=== PATIENT | female | born 1980 | race Caucasian/White ===

== ENCOUNTER → 2017-03-14 | Day surgery (SDC) | payer OTHER ==
[2017-03-05 10:32] VITALS: Ht 162.6 cm; Wt 75.9 kg
[~2017-03-14] VITALS: Ht 162.6 cm; Wt 75.9 kg
[~2017-03-14] MED LIST: FEXO5TAB2; LIDOCAINE HCL 2% 2 ML VIAL (20MG/ML) ONE; MESA10002 PR; PROPOFOL IV EMULSION 10 MG/ML 20 ML VIAL IV ONE; SODIUM CHLORIDE 0.9% 500ML 500 ML IV ONE; TRIA1SPR4 PO
--- NOTE | 2017-03-14 08:46 | Endo History and Physical ---
History & Physical Date of Service: March 14, 2017. Chief Complaint: Ulcerative colitis Referring Physician: MILO Hutchison History of Present Illness 36 yo CF who presents for colonoscopy secondary to ulcerative colitis. Past Medical History Gastrointestinal Disorder, Other Past Surgical History Hx Cardiac Surgery: No Hx Internal Defibrillator: No Hx Pacemaker: No Hx Abdominal Surgery: Yes () Hx of Implantable Prosthesis: No Hx Post-Op Nausea and Vomiting: No Hx Cancer Surgery: No Hx Thoracic Surgery: No Hx Orthopedic: No Hx Urinary Tract Surgery: No Family History IBD Social History Smoking Status: Never Smoker Hx Substance Use: No Hx Alcohol Use: Yes (OCCASIONALLY) Allergies Coded Allergies: No Known Allergies (Verified , 03/14/17) Current Medications Reported Home Medications Medications Dose Route/Sig Max Daily Dose Days Date Category Nasacort Allergy 24Hr (Triamcinolone Acetonide (Nasal) 55 Mcg/Act Spr 1 [place] PO HS 03/05/17 Reported Canasa (Mesalamine) 1,000 Mg Sup 1 Supp UT HS 02/24/15 Reported Mary-D 12 Hour Allergy (Fexofenadine-Pseudoephedrine) 1 Tab Tab PRN 02/24/15 Reported Vital Signs Weight (Kilograms): 75.91 Height (Feet): 5 Height (Inches): 4 Date Time Temp Pulse Resp B/P Pulse Ox O2 Delivery O2 Flow Rate FiO2 03/14/17 08:16 36.6 81 18 136/89 99 Room Air Physical Exam General Appearance: WD/WN, no apparent distress Respiratory/Chest: Auscultation: breath sounds normal Cardiovascular: Heart Auscultation: RRR Abdomen: Bowel Sounds: normal Inspection & Palpation: soft, non-distended, no tenderness, guarding & rebound Assessment and Plan Assessment: 36 yo CF who presents for colonoscopy secondary to ulcerative colitis. Plan: Proceed with colonoscopy.
--- NOTE | 2017-03-14 09:42 | Discharge Instructions ---
Endoscopy Patient Instructions Date / Procedure(s) Performed March 14, 2017. Colonoscopy Allergy Information Coded Allergies: No Known Allergies (Verified , 03/14/17) Discharge Date / Findings March 14, 2017. Random colon biopsies Rectal biopsies Medication Instructions OK to resume all medications today as prescribed Reported Home Medications Medications Dose Route/Sig Max Daily Dose Days Date Category Nasacort Allergy 24Hr (Triamcinolone Acetonide (Nasal) 55 Mcg/Act Spr 1 [place] PO HS 03/05/17 Reported Canasa (Mesalamine) 1,000 Mg Sup 1 Supp GA HS 02/24/15 Reported Mary-D 12 Hour Allergy (Fexofenadine-Pseudoephedrine) 1 Tab Tab PRN 02/24/15 Reported Provider Instructions Activity Restrictions - No exercising or heavy lifting for 24 hours. - Do not drink alcohol the day of the procedure. - Do not drive a car or operate machinery until the day after the procedure. - Do not make any important decisions or sign important papers in 24 hours after the procedure. Following Day: - Return to full activity which may include returning to work/school. Diet Start your diet with liquids and light foods (jello, soup, juice, toast). Then eat your usual diet if not nauseated. Treatment For Common After Affects For mild abdominal pain, bloating, or excessive gas: - Rest - Eat lightly - Lie on right side Follow-Up Information Follow-up with MILO Hutchison as scheduled Anesthesia Information What You Should Know You have had a procedure that required some medicine to reduce anxiety and discomfort. This treatment is called moderate sedation. After receiving the treatment, you may be sleepy, but you will be able to breathe on your own. The effects of the treatment may last for several hours. Follow these instructions along with Activity/Diet recommendations noted above: * Do NOT do anything where dizziness or clumsiness would be dangerous. * Rest quietly at home today, then you can be up and about tomorrow. * Have a responsible person stay with you the rest of today. * You may have had an I.V. today. If so, you may take the dressing off later today. Recommendations Call your doctor if: * Trouble breathing * Continuous vomiting for more than 24 hours * Temperature above 101 degrees * Severe abdominal pain or bloating * Pain not relieved by pain medicine ordered * There is increased drainage or redness from any incision * A large amount of rectal bleeding greater than 2-3 tablespoons. (If you had a polyp/s removed or have hemorrhoids, a small amount of blood - from the rectum is to be expected.) * You have any unanswered questions or concerns. IN THE EVENT OF A SERIOUS EMERGENCY, GO TO THE NEAREST EMERGENCY ROOM Your discharge instructions were prepared by provider Mirza Rodríguez. Patient Instructions Signature Page Allyssa Hogan Patient (or Guardian) Signature/Date: I have read and understand the instructions given to me by my caregivers. Caregiver/RN/Doctor Signature/Date: The above-named patient and/or guardian has received patient instructions on this date. + Original Patient Signature Page (only) stays with chart. Please make copy for patient.
--- NOTE | 2017-03-14 10:05 | Anesthesiology Progress Note ---
Anesthesia Post Op Note Date & Time March 14, 2017 at 10:05 Vital Signs Pain Intensity: 0 Vital Signs Past 12 Hours Date Time Temp Pulse Resp B/P Pulse Ox O2 Delivery O2 Flow Rate FiO2 03/14/17 09:50 73 18 113/80 97 Room Air 03/14/17 09:35 74 18 113/76 98 Room Air 03/14/17 08:16 36.6 81 18 136/89 99 Room Air Notes Mental Status: alert / awake / arousable, participated in evaluation Pt Amnestic to Procedure: Yes Nausea / Vomiting: adequately controlled Pain: adequately controlled Airway Patency, RR, SpO2: stable & adequate BP & HR: stable & adequate Hydration State: stable & adequate Anesthetic Complications: no major complications apparent
[2017-03-14 10:11] VITALS: BP 123/81; PULSE 78; O2SAT 97
--- NOTE | 2017-03-14 10:58 | GI REPORT ---
Procedure Date: 03/14/2017 8:59 AM Procedure: Colonoscopy Indications: Follow-up of chronic ulcerative proctitis Medicines: Monitored Anesthesia Care Complications: No immediate complications. Estimated Blood Loss: Estimated blood loss: none. Procedure: Pre-Anesthesia Assessment: - Prior to the procedure, a History and Physical was performed, and patient medications and allergies were reviewed. The patient's tolerance of previous anesthesia was also reviewed. The risks and benefits of the procedure and the sedation options and risks were discussed with the patient. All questions were answered, and informed consent was obtained. Prior Anticoagulants: The patient has taken no previous anticoagulant or antiplatelet agents. ASA Grade Assessment: I - A normal, healthy patient. After reviewing the risks and benefits, the patient was deemed in satisfactory condition to undergo the procedure. After I obtained informed consent, the scope was passed under direct vision. Throughout the procedure, the patient's blood pressure, pulse, and oxygen saturations were monitored continuously. The scope was introduced through the anus and advanced to the terminal ileum. The colonoscopy was performed without difficulty. The patient tolerated the procedure well. The quality of the bowel preparation was good. The terminal ileum, ileocecal valve, appendiceal orifice, and rectum were photographed. Findings: The colon (entire examined portion) appeared normal. Several random biopsies were obtained with cold forceps for histology in the sigmoid colon, in the descending colon, in the transverse colon and in the ascending colon. Multiple biopsies were obtained with cold forceps for histology in a targeted manner in the rectum. Non-bleeding internal hemorrhoids were found during retroflexion. The hemorrhoids were small. Impression: - The entire examined colon is normal. - Non-bleeding internal hemorrhoids. - Several random biopsies were obtained in the sigmoid colon, in the descending colon, in the transverse colon and in the ascending colon. - Multiple biopsies were obtained in the rectum. Recommendation: - Resume previous diet. - Continue present medications. - Repeat colonoscopy for surveillance based on pathology results. - Return to primary care physician as previously scheduled. Mirza Rodríguez DO 03/14/2017 9:37:00 AM This report has been signed electronically. Note Initiated On: 03/14/2017 8:59 AM I attest to the content of the Intraoperative Record and orders documented therein, exceptions below
== END | disposition home or self-care (01) ==
LOC: C.GI 07:58
PROVIDERS: ATTEND Internal Medicine
DX: K51.20 Ulcerative (chronic) proctitis without complications (principal); K64.8 Other hemorrhoids; Z83.79 Family history of other diseases of the digestive system

== ENCOUNTER 2019-06-06 07:30 | Inpatient (IN) ==
--- NOTE | 2019-06-04 13:34 | PAT Medication Instructions ---
Medication Instructions Date of Service June 04, 2019 Home Medications aspirin 81 mg tablet,delayed release 81 mg PO QAM escitalopram 10 mg tablet 10 mg PO QAM prenat.vits,charles,[id number] 1 tab PO QAM levothyroxine 50 mcg PO QAM ASK your prescriber and surgeon aspirin 81 mg tablet,delayed release 81 mg PO QAM DO NOT take the morning of surgery prenat.vits,charles,[id number] 1 tab PO QAM Take morning of surgery With a small sip of water, OTHERWISE NOTHING TO EAT OR DRINK AFTER MIDNIGHT: escitalopram 10 mg tablet 10 mg PO QAM levothyroxine 50 mcg PO QAM Other Notes If you have any questions please call us at [phone] or [phone] or [phone] or [phone]
--- NOTE | 2019-06-05 09:06 | History & Physical Report ---
Date of Service June 05, 2019 41+2 with 1 prior C/S, wishes repeat. Uncomplicated Assessment & Plan (1) Previous delivery affecting , antepartum: section. The patient was counseled to the nature of the procedure including alternatives such as labor. Risks were discussed including bleeding infection injury to bowel bladder ureter vessels and even baby. Deep Vein thrombosis, pulmonary embolus discussed. Breakdown of incision reviewed. Deep vein thrombosis pulmonary embolus hernia and failure of the incision to heal were discussed Patient verbalized understanding of this and was given ample time to ask questions History of Present Illness Primary Care Provider: Fozia Barnhart PA-C Allergies Allergy/AdvReac Type Severity Reaction Status Date / Time No Known Drug Allergies Allergy Verified 06/05/19 08:53 Home Medications Home Medications Medication Instructions Recorded Confirmed Type aspirin 81 mg tablet,delayed 81 mg PO QAM tab 05/09/19 06/05/19 History release escitalopram 10 mg tablet 10 mg PO QAM tab 05/09/19 06/05/19 History prenat.vits,charles,[id number]-yzqt-nbyys 1 tab PO QAM 05/09/19 06/05/19 History levothyroxine 50 mcg PO QAM 05/29/19 06/05/19 History Patient History Medical History Group B streptococcal carriage complicating (Acute) Depression History of herpes zoster History of varicella Hypothyroid Ulcerative colitis Surgical History Hx of section Family History Other No pertinent family history Social History Preferred Language: Faroese Communication Ability: Effective Beliefs That Will Affect Care: None Current Living Situation: Family Feels Safe at Home: Yes Smoking Status: Never smoker Second Hand Exposure: No ; Hx Alcohol Use: No Hx Substance Use: No Physical Exam Constitutional: WD/WN, vitals as above Respiratory: normal respiratory effort, lungs clear to auscultation Cardiovascular: RRR, no murmur, no edema Genitourinary: OB Exam Abdomen: + fundal height (37), + heart tones (NST) and + vertex
--- NOTE | 2019-06-05 10:21 | Anesthesiology Consultation ---
Date of Service June 05, 2019 Assessment & Plan (1) Encounter for pre-operative examination: - Per OB, no labs to be drawn at PAT visit. - ASA instructions: per OB (per patient at PAT visit 06/05/19, still taking as she was not advised to discontinue) Chart Review Chart Review: Acceptable Risk for Surgery (pending labs AM DOS) and Patient seen in Pre Admission Testing Teaching & Discussion Pre-Anesthesia Teaching/Discussion Notes: Instructed NPO after midnight before surgery,except medications with 15 cc of water. Medication instructions provided according to the [facility] guidelines. History Surgery Operation Date: 06/06/19 09:45 Proposed Procedures p Section in LD - Sorin Mijares MD, FACOG Height/Weight Height: 5 ft 4 in Weight: 91.2 kg Allergies Allergy/AdvReac Type Severity Reaction Status Date / Time No Known Drug Allergies Allergy Verified 06/05/19 08:53 Medications Home Medications Medication Instructions Recorded Confirmed Last Taken aspirin 81 mg tablet,delayed 81 mg PO QAM tab 05/09/19 06/05/19 Unknown release escitalopram 10 mg tablet 10 mg PO QAM tab 05/09/19 06/05/19 Unknown prenat.vits,charles,[id number]-cljb-xpgeb 1 tab PO QAM 05/09/19 06/05/19 Unknown levothyroxine 50 mcg PO QAM 05/29/19 06/05/19 Unknown Past Medical History Medical History Group B streptococcal carriage complicating Depression Elevated BP without diagnosis of hypertension elevated BP with previous ; on ASA with current History of herpes zoster History of varicella Hypothyroid Ulcerative colitis stable Exercise / Class Metabolic Activity III < 4 Walking/Shop/Light housework Past Family History Family History Other No pertinent family history Past Surgical History Surgical History Hx of section 2011= emergency 2/2 low amniotic fluid/ distress/cord wrapped around neck= spinal block ("good pain control") Past Anesthesia History No Hx of Anesthesia Complications and No Family Hx of Anesthesia Complications History of PONV No Hx of PONV and No Hx of Motion Sickness Social History Smoking Status: Never smoker Do You Dip or Chew Tobacco: No Hx Alcohol Use: No Hx Substance Use: No Review of Systems related reflux. Patient denies chest pain, shortness of breath, cough, wheezing, palpitations. Physical Exam Vital Signs VITALS BP 121/67 P 87 TEMP 98.5 SP02 98%RA RESP 18 PHYSICAL Full neck and c-spine range of motion. Full TMJ range of motion. TMD 3 finger breaths Mallampati Score 2 Dentition: upper front right tooth chipped Lungs: clear throughout to auscultation Cardiac: regular rate and rhythm, no murmurs noted Spine: normal Extremities: no edema
[~2019-06-06 07:30] MED LIST changes: +CEFAZOLIN 2,000 MG in SYRINGE 0 ML IV SCH; +CITRIC ACID/SODIUM CITRATE 15 ML UDC PO SCH; -FEXO5TAB2; +LACTATED RINGER'S 1,000 ML IV SCH; -LIDOCAINE HCL 2% 2 ML VIAL (20MG/ML) ONE; -MESA10002 PR; -PROPOFOL IV EMULSION 10 MG/ML 20 ML VIAL IV ONE; -SODIUM CHLORIDE 0.9% 500ML 500 ML IV ONE; -TRIA1SPR4 PO
[2019-06-06] MEDS ORDERED: LACTATED RINGER'S 1,000 ML IV PRN (08:43)
[2019-06-06] MEDS ORDERED: OXYTOCIN 30 UNITS/500 ML BAG IV PRN ×2 (08:43→08:45)
[2019-06-06] MEDS ORDERED: PENICILLIN G POTASSIUM 3 MU in DEXTROSE 5% 100 ML IV PRN (08:45)
[2019-06-06 08:49] LABS: Basophils # (auto) 0.03 K/uL (0-0.2); Basophils % (auto) 0.5 %; Eosinophils # (auto) 0.26 K/uL (0-0.5); Eosinophils % (auto) 4.2 %; Hematocrit (blood only) 34.5 % (37-47); Hemoglobin 11.9 g/dL (12.0-16.0); Immature Granulocytes # (auto) 0.02 K/uL (0.00-0.02); Immature Granulocytes % (auto) 0.3 %; Lymphocytes % (auto) 22.9 %; Mean Corpuscular Hemoglobin 31.2 pg (25-34); Mean Corpuscular Hgb Conc 34.5 g/dL (32-36); Mean Corpuscular Volume 90.3 fL (80-100); Mean Platelet Volume 11.6 fL (7.4-10.4); Monocytes # (auto) 0.59 K/uL (0.11-0.59); Monocytes % (auto) 9.6 %; Neutrophils # (auto) 3.82 K/uL (1.4-6.5); Neutrophils % (auto) 62.5 %; Platelet Count 186 K/uL (130-400); RDW Coefficient of Variation 13.6 % (11.5-14.5); Red Blood Count 3.82 M/uL (4.2-5.4); White Blood Count 6.12 K/uL (4.8-10.8)
[2019-06-06] MEDS ORDERED: PENICILLIN G POTASSIUM 6 MU in DEXTROSE 5% 250 ML IV ONE (09:00)
--- NOTE | 2019-06-06 09:26 | History & Physical Bridge Note ---
Date of Service June 06, 2019 History & Physical Bridge Note I have examined the patient, reviewed the History & Physical and in the interval since the performance of the History & Physical I have noted the following changes of clinical significance: no changes noted
[2019-06-06] MEDS ORDERED: fentaNYL citrate 100 MCG/2 ML VIAL ONE (09:39)
[2019-06-06] MEDS ORDERED: MoRPHine SULFATE PF 1 MG/ML 10 ML AMP/VIAL ONE (09:40)
[2019-06-06] MEDS ORDERED: OXYTOCIN 10 UNITS/ML VIAL ONE (10:55)
[2019-06-06] MEDS ORDERED: PHENYLEPHRINE 100MCG/ML 5ML SYR ONE (10:55)
[2019-06-06] MEDS ORDERED: ONDANSETRON INJ 2 MG/ML 2 ML VIAL ONE (10:55)
[2019-06-06] MEDS ORDERED: PHENYLEPHRINE HCL 10 MG/ML VIAL ONE (10:55)
--- NOTE | 2019-06-06 11:00 | Operative Report ---
Post Operative Report Pre & Post Diagnosis Operation Date: 06/06/19 09:45 <No data on this case meets the specified criteria> Procedure Operation Date: 06/06/19 09:45 Actual Procedures p Section in live female at 1026(Not Applicable) - Sorin Mijares MD, FACOG Surgeon Sorin Mijares MD, FACOG Internet Developer Dr. Gonsales Estimated Blood Loss 500 Findings Consistent with Post-Op Diagnosis Specimens Cord blood cord gases Description of Procedure Patient was given a spinal anesthetic preoperative antibiotics were given patient was then prepped and draped in supine position with a leftward tilt De La Cruz catheter placed by nursing pickups with teeth were used to test the incision area and found to be adequate scalpel used over the previous Pfannenstiel incision dissecting down through subtenons fat through the fascia in the midline fascia then cut laterally with curved Ambriz scissors rectus muscle split peritoneal cavity entered in a superior location peritoneal cavity opening enlarged to allow exposure bladder retractor placed Metzenbaums used to dissect away the bladder flap low segment transverse incision made on the low segment of the uterus entry was done with the yarn texture machine operator's finger uterine incision was then opened with the yarn texture machine operator's finger membranes are ruptured fluid was clear there was no nuchal cord baby was in vertex position delivered by flexion of the head and then pressure by the legal administrative assistant live vigorous female infant cord clamped and cut cord gases obtained cord blood obtained placenta removed IV Pitocin started we exteriorized the uterus and ensured all placenta was removed uterus was then closed in a 2 layer 0 Monocryl closure first layer locked second layer not locked after generous irrigation and suction of the cul-de-sac uterus was placed back in the peritoneal cavity and the bladder flap was reirrigated on inspection hemostasis was excellent Fascia closed with 0 Vicryl subtenons fat irrigated and closed with a 2-0 Vicryl for skin closed with 040 septic your Monocryl Steri-Strips applied urine was clear at the end the procedure sponge and instrument counts correct I attest to the content of the Intraoperative Record and any orders documented therein. Any exceptions are noted below.
[2019-06-06 11:22] LABS: Base Excess Cord Arterial Bld -6.9 mEq/L (-9-1.8); CO2 Cord Arterial Blood 71 mmHg (39.1-73.5); HCO3 Cord Arterial Blood 24 mmol/L (19.7-28.5); Oxygen Sat Cord Arterial Blood < 60.0 % (<60); pH Cord Arterial Blood 7.14 (7.1-7.38)
[2019-06-06] MEDS ORDERED: LACTATED RINGER'S 500 ML IV PRN (11:27)
[2019-06-06] MEDS ORDERED: ONDANSETRON INJ 2 MG/ML 2 ML VIAL IV PRN (11:27)
[2019-06-06] MEDS ORDERED: NALOXONE HCL 0.08 MG in SYRINGE 1.8 ML IV PRN (11:27)
[2019-06-06] MEDS ORDERED: DiphenhydrAMINE HCL 50 MG/ML VIAL IV PRN (11:27)
[2019-06-06] MEDS ORDERED: NALOXONE HCL 0.4 MG/1 ML VIAL/CARP IV PRN (11:27)
[2019-06-06] MEDS ORDERED: ePHEDrine sulfate 50 MG/ML AMP IV PRN (11:27)
[2019-06-06] MEDS ORDERED: HYDROmorphone INJ 0.5 MG/0.5 ML SYR IV PRN (11:27)
[2019-06-06] MEDS ORDERED: MoRPHine SULFATE PF 1 MG/ML 10 ML AMP/VIAL INT SPINAL ONE (11:27)
[2019-06-06] MEDS ORDERED: NALOXONE HCL 1 MG in SODIUM CHLORIDE 0.9% 1000ML 1,000 ML IV PRN (11:27)
[2019-06-06] MEDS ORDERED: NALBUPHINE HCL INJ 10 MG/ML AMP IV PRN (11:27)
[2019-06-06] MEDS ORDERED: DC INTRASPINAL MORPHINE SCH (11:30)
[2019-06-06] MEDS ORDERED: SODIUM CHLORIDE 0.9% 1000ML 1,000 ML IV SCH (11:30)
[2019-06-06] MEDS ORDERED: NO NARCOTICS OR SEDATIVES SCH (11:30)
--- NOTE | 2019-06-06 11:36 | Anesthesiology Progress Note ---
Date of Service June 06, 2019 Anesthesia Post Procedure Vital Signs Vital Signs: Temp Pulse Resp BP Pulse Ox 06/06/19 11:34 59 L 124/75 99 06/06/19 11:29 59 L 100 06/06/19 11:25 59 L 124/68 06/06/19 11:24 60 98 06/06/19 11:19 64 99 06/06/19 11:15 60 107/77 06/06/19 11:14 61 99 06/06/19 11:09 63 98 06/06/19 11:05 36.5 C 18 06/06/19 11:04 61 127/60 99 06/06/19 08:16 72 137/87 06/06/19 08:12 36.7 C 16 Transfer of Care Handoff Completed per policy Notes Mental Status: alert / awake / arousable and participated in evaluation Nausea / Vomiting: adequately controlled Pain: adequately controlled Airway Patency, RR, SpO2: stable & adequate BP & HR: stable & adequate Hydration State: stable & adequate Neuraxial Anesthesia: was administered and sensory block is resolving Anesthetic Complications: no major complications apparent and Pt Satisfied with anesthetic care
[2019-06-06] MEDS ORDERED: OXYTOCIN 20 UNITS in LACTATED RINGER'S 1,000 ML IV SCH (12:15)
[2019-06-06] MEDS ORDERED: LACTATED RINGER'S 1,000 ML IV SCH (13:50)
[2019-06-06] MEDS ORDERED: HYDROCORTISONE ACETATE 25 MG SUPP PR PRN (13:50)
[2019-06-06] MEDS ORDERED: MAGNESIUM HYDROXIDE SUSP 30 ML UDC PO PRN (13:50)
[2019-06-06] MEDS ORDERED: SUPERCREAM 0.870% 15 GM JAR EXT PRN (13:50)
[2019-06-06] MEDS ORDERED: DIPHTHERIA/TETANUS/PERTUSSIS 0.5 ML SYR/VIAL IM ONE (13:50)
[2019-06-06] MEDS ORDERED: SENNA 8.6 MG TAB PO PRN (13:50)
[2019-06-06] MEDS ORDERED: BENZOCAINE 20% AER SPR 82.5 GM CAN EXT PRN (13:50)
[2019-06-06] MEDS: KETOROLAC 30 MG/ML VIAL IV PRN ×2 (14:53→23:27)
[2019-06-06] MEDS: SIMETHICONE 80 MG CHEW PO SCH ×3 (14:59→20:29)
[2019-06-06] MEDS: DOCUSATE SODIUM 100 MG CAP PO SCH (20:29)
[2019-06-07] MEDS ORDERED: ONDANSETRON INJ 2 MG/ML 2 ML VIAL IV PRN (05:27)
[2019-06-07] MEDS ORDERED: MEPERIDINE HCL 50 MG/ML CARP IV PRN (05:27)
[2019-06-07] MEDS ORDERED: KETOROLAC 30 MG/ML VIAL IV PRN (05:27)
[2019-06-07] MEDS ORDERED: PROMETHAZINE HCL 25 MG in SODIUM CHLORIDE 0.9% 50 ML IV PRN (05:27)
[2019-06-07] MEDS ORDERED: DiphenhydrAMINE HCL 50 MG/ML VIAL IV PRN (05:28)
[2019-06-07 06:27] LABS: Basophils # (auto) 0.02 K/uL (0-0.2); Basophils % (auto) 0.3 %; Eosinophils % (auto) 2.6 %; Hematocrit (blood only) 30.1 % (37-47); Hemoglobin 10.3 g/dL (12.0-16.0); Immature Granulocytes # (auto) 0.01 K/uL (0.00-0.02); Immature Granulocytes % (auto) 0.1 %; Lymphocytes # (auto) 1.16 K/uL (1.2-3.4); Lymphocytes % (auto) 15.3 %; Mean Corpuscular Hemoglobin 31.1 pg (25-34); Mean Corpuscular Hgb Conc 34.2 g/dL (32-36); Mean Corpuscular Volume 90.9 fL (80-100); Mean Platelet Volume 10.9 fL (7.4-10.4); Monocytes # (auto) 0.48 K/uL (0.11-0.59); Monocytes % (auto) 6.3 %; Neutrophils # (auto) 5.71 K/uL (1.4-6.5); Neutrophils % (auto) 75.4 %; Platelet Count 158 K/uL (130-400); RDW Coefficient of Variation 13.8 % (11.5-14.5); RDW Standard Deviation 45.4 fL (36.4-46.3); Red Blood Count 3.31 M/uL (4.2-5.4); White Blood Count 7.58 K/uL (4.8-10.8)
[2019-06-07] MEDS: LEVOTHYROXINE SODIUM 50 MCG TABLET PO SCH (06:42)
--- NOTE | 2019-06-07 06:55 | Obstetrical Progress Note ---
Date of Service <Tiana Benedict MD - Last Filed: 06/07/19 06:59> June 07, 2019 Assessment & Plan <Tiana Benedict MD - Last Filed: 06/07/19 06:59> (1) Status post : Allyssa is a 38 yo on POD 1 after elective c/s. - GBS +, Blood Type A+, Rubella immune -Vitals reviewed and WNL -patient is doing clinically well De La Cruz removed; remove bandage today, encourage ambulation, provide analgesia as needed, monitor lochia - After discharge will have [address] Mijares. Subjective <Tiana Benedict MD - Last Filed: 06/07/19 06:59> Ambulation: limited ambulation Voiding: no voiding problems (De La Cruz removed by nurse this morning) Passing Gas:: Yes Diet Tolerance:: regular diet Lochia:: Moderate Feeding Type:: breast feeding Current Pain Level(1-10): 3 patient examined at bedside Constitutional: no fever, no chills and no sweats Respiratory: no cough and no dyspnea Cardiovascular: no chest pain and no palpitations Breast: no breast pain Gastrointestinal: no nausea and no vomiting Genitourinary (female): no dysuria and no urinary frequency Neurologic: no headache(s) Physical Exam <Tiana Benedict MD - Last Filed: 06/07/19 06:59> Constitutional WD/WN, vitals as above no acute distress Respiratory normal respiratory effort, lungs clear to auscultation does not use accessory muscles Auscultation: no crackles, no rhonchi, no wheezes and no pleural rub Cardiovascular Rate/Rhythm: regular rate and regular rhythm Heart Sounds: normal S1 and normal S2; no gallop, no murmur and no cardiac rub Extremities: no calf tenderness and no pedal edema Gastrointestinal (Abdomen) Inspection/Auscultation: normal bowel sounds; abdomen not distended Percussion/Palpation: abdomen soft surgical incision: bandage in place; dry, no warmth; appropriate post- op tenderness Musculoskeletal bilateral SCDs in place Genitourinary Uterus: fundus firm, palpable 1 cm below the umbilicus Results & Data <Tiana Benedict MD - Last Filed: 06/07/19 06:59> Vital Signs (Past 12 Hours) Vital Signs Temp Pulse Resp BP Pulse Ox 06/07/19 06:15 20 98 06/07/19 05:15 18 98 06/07/19 04:16 18 98 06/07/19 03:25 37.3 C 69 18 134/80 98 06/07/19 03:15 17 97 06/07/19 02:17 17 96 06/07/19 01:15 17 95 06/07/19 00:20 18 95 06/06/19 23:30 37.5 C 74 20 130/78 97 06/06/19 23:15 18 96 06/06/19 22:10 17 95 06/06/19 21:15 18 95 06/06/19 20:15 37.4 C 73 18 129/78 96 06/06/19 19:20 20 98 <Sorin Mijares MD, FACOG - Last Filed: 06/07/19 07:17> Co-Signing Physician Notes Resident Physician Supervision Note: I interviewed and examined the patient. Discussed with Dr. Benedict and agree with findings and plan as documented in the note. Any exceptions or clarifications are listed here: [None] Documented By: Sorin Mijares MD, FACOG
[2019-06-07] MEDS: SIMETHICONE 80 MG CHEW PO SCH ×4 (07:32→20:45)
[2019-06-07] MEDS: PRENATAL VITAMIN 1 TAB PO SCH (07:33)
[2019-06-07] MEDS: IBUPROFEN 600 MG TAB PO PRN ×3 (07:33→18:04)
[2019-06-07] MEDS: DOCUSATE SODIUM 100 MG CAP PO SCH ×2 (07:33→20:45)
[2019-06-07] MEDS: OXYCODONE/ACETAMINOPHEN 5mg/325mg TAB PO PRN ×3 (07:34→18:05)
--- NOTE | 2019-06-07 08:34 | Anesthesiology Progress Note ---
Date of Service June 07, 2019 Pt is s/p Csection x 1 day;pt had a SAB; pt has no c/o H/A or neurologic deficits.pt is satisfied w/ anesthetic care. Physical Exam Vital Signs: Last Vital Signs Temp 37.3 C 06/07/19 03:25 Pulse 69 06/07/19 03:25 Resp 20 06/07/19 06:15 BP 134/80 06/07/19 03:25 Pulse Ox 98 06/07/19 06:15 Results & Data Medications Administered Docusate Sodium (Colace) 100 mg PO DAILY@ [facility] Stop: 07/06/19 20:59 Last Admin: 06/07/19 07:33 Dose: 100 mg Documented by: [id number] Admin: 06/06/19 20:29 Dose: 100 mg Documented by: [id number] Lactated Ringer's (Lr) 1,000 mls @ 125 mls/hr IV .Q8H RODOLFO Stop: 07/06/19 13:49 Last Infusion: 06/07/19 04:26 Dose: 0 mls/hr Documented by: [id number] Admin: 06/06/19 20:27 Dose: 125 mls/hr Documented by: [id number] Ibuprofen (Motrin) 600 mg PO Q4H PRN PRN Reason: Pain Stop: 07/06/19 13:49 Last Admin: 06/07/19 07:33 Dose: 600 mg Documented by: [id number] Levothyroxine Sodium (Synthroid) 50 mcg PO DAILYBB RODOLFO Stop: 07/07/19 06:29 Last Admin: 06/07/19 06:42 Dose: 50 mcg Documented by: [id number] Oxycodone/Acetaminophen (Percocet 5mg/325mg) 1 - 2 tab PO Q4H PRN PRN Reason: Pain Stop: 06/21/19 05:26 Last Admin: 06/07/19 07:34 Dose: 1 tab Documented by: [id number] Prenat Multivit/Robeson/Iron/Folic Ac ( Vitamin) 1 tab PO DAILY@08 [facility] Stop: 07/07/19 07:59 Last Admin: 06/07/19 07:33 Dose: 1 tab Documented by: [id number] Simethicone (Mylicon) 80 mg PO DAILY@08,,17,21 [facility] Stop: 07/06/19 13:49 Last Admin: 06/07/19 07:32 Dose: 80 mg Documented by: [id number] Admin: 06/06/19 20:29 Dose: 80 mg Documented by: [id number] Admin: 06/06/19 16:32 Dose: 80 mg Documented by: [id number] Admin: 06/06/19 14:59 Dose: Not Given Documented by: [id number]
[2019-06-07] MEDS ORDERED: ESCITALOPRAM OXALATE 10 MG TAB PO SCH (09:00)
[2019-06-07] MEDS ORDERED: NON-FORMULARY MEDICATION (Prenat.Vits,Cal,Min-Iron-Folic 1 TAB) PO SCH (09:00)
[2019-06-07] MEDS ORDERED: LEVOTHYROXINE SODIUM 50 MCG TABLET PO SCH (09:00)
[2019-06-07] MEDS: ESCITALOPRAM OXALATE 10 MG TAB PO SCH (11:35)
[2019-06-07] MEDS: ASPIRIN 81 MG ECTAB PO SCH (11:36)
[2019-06-07] MEDS ORDERED: BISACODYL 5 MG TABEC PO SCH (20:00)
[2019-06-07] MEDS ORDERED: ZOLPIDEM TARTRATE 5 MG TAB PO PRN (21:00)
[2019-06-08] MEDS: IBUPROFEN 600 MG TAB PO PRN ×4 (00:15→12:44)
[2019-06-08] MEDS: OXYCODONE/ACETAMINOPHEN 5mg/325mg TAB PO PRN ×3 (00:15→12:42)
[2019-06-08] MEDS: LEVOTHYROXINE SODIUM 50 MCG TABLET PO SCH (06:26)
[2019-06-08 07:12] LABS: Hematocrit (blood only) 30.6 % (37-47); Hemoglobin 10.2 g/dL (12.0-16.0)
[2019-06-08] MEDS: SIMETHICONE 80 MG CHEW PO SCH ×2 (08:49→14:07)
[2019-06-08] MEDS: ESCITALOPRAM OXALATE 10 MG TAB PO SCH (08:49)
[2019-06-08] MEDS: PRENATAL VITAMIN 1 TAB PO SCH (08:49)
[2019-06-08] MEDS: ASPIRIN 81 MG ECTAB PO SCH (08:49)
[2019-06-08] MEDS: DOCUSATE SODIUM 100 MG CAP PO SCH (08:49)
--- NOTE | 2019-06-08 09:33 | Obstetrical Progress Note ---
Date of Service June 08, 2019 Assessment & Plan (1) Status post : Patient post op day 2 from [facility]. Doing well. Mild range BPs last night. BP this AM wnl. Patient requesting dscharge. Will place discharge order for mid afternoon pending BPs <150/100. Will arrange for BP check in clinic Subjective Ambulation: ambulating normally Voiding: no voiding problems Diet Tolerance:: regular diet Lochia:: Moderate Feeding Type:: breast feeding Current Pain Level(1-10): 2 Physical Exam Gastrointestinal (Abdomen) Percussion/Palpation: + abdomen tender and abdomen soft; no guarding and abdomen not rigid Results & Data Vital Signs (Past 12 Hours) Vital Signs Temp Pulse Resp BP Pulse Ox 06/08/19 03:40 152/96 H 06/08/19 02:10 79 152/88 H 06/08/19 00:20 37.4 C 73 20 156/90 H 95
[2019-06-08] MEDS ORDERED: BISACODYL 10 MG SUPP PR PRN (10:56)
--- NOTE | 2019-06-11 08:34 | Discharge Summary ---
Date of Service June 11, 2019 Had C/S June 06 and discharged home June 08 Admission Exam (Per Admitting) Constitutional WD/WN, vitals as above Respiratory normal respiratory effort, lungs clear to auscultation Cardiovascular RRR, no murmur, no edema Gastrointestinal (Abdomen) normal bowel sounds, soft, nontender, no hepatosplenomegaly Discharge Data Procedures Performed Operation Date: 06/06/19 09:45 Actual Procedures p Section in live female at 1026(Not Applicable) - Sorin Mijares MD, FACOG Hospital Course (1) Status post : Meets criteria. Home
== END 2019-06-08 16:22 | disposition home or self-care (01) | DRG 788 ==
LOC: EDSTATUS 07:30 → 4S1 07:56 → 4S2 13:30
DX: Z37.0 Single live birth; Z3A.39 39 weeks gestation of pregnancy; O34.211 Maternal care for low transverse scar from previous cesarean delivery